=== PATIENT | female | born 1990 | race Two or more races ===

== ENCOUNTER 2021-02-20 12:22 | Emergency (ER) | payer OTHER ==
[~2021-02-20] VITALS: Ht 175.3 cm; Wt 64.8 kg
[2021-02-20] MEDS ORDERED: SYNT25TA PO (12:58)
[2021-02-20] MEDS ORDERED: KETOROLAC 30 MG/ML 1ML VIAL IV ONE (16:25)
[2021-02-20] MEDS ORDERED: NS 1,000 ML IV ONE (16:25)
[2021-02-20 17:01] LABS: BASO % 0.1 % (0.0-1.0); EOS # 0.1 10^3/uL (0.0-0.5); EOS % 0.9 % (0.0-3.0); HEMATOCRIT 38.4 % (36.0-47.0); HEMOGLOBIN 12.7 g/dl (12.0-15.5); LYMPH # 2.2 10^3/uL (1.5-5.0); MEAN CORPUSCULAR HEMOGLOBIN 29.8 pg (27.0-33.0); MEAN CORPUSCULAR HGB CONC 33.1 g/dl (32.0-36.5); MEAN CORPUSCULAR VOLUME 90.1 fl (80.0-96.0); MONO # 0.6 10^3/uL (0.0-0.8); MONO % 8.7 % (2.0-8.0); NEUTROPHILS # 3.8 10^3/uL (1.5-8.5); NEUTROPHILS % 57.2 % (36.0-66.0); PLATELET COUNT, AUTOMATED 279 10^3/uL (150-450); RED BLOOD COUNT 4.26 10^6/uL (4.00-5.40); WHITE BLOOD COUNT 6.7 10^3/uL (4.0-10.0)
[2021-02-20 17:28] LABS: ALBUMIN 3.8 GM/DL (3.2-5.2); ALT/SGPT 17 U/L (12-78); BILIRUBIN,DIRECT 0.2 MG/DL (0.0-0.2); BILIRUBIN,TOTAL 0.4 MG/DL (0.2-1.0); BLOOD UREA NITROGEN 10 MG/DL (7-18); CALCIUM LEVEL 9.1 MG/DL (8.5-10.1); CARBON DIOXIDE LEVEL 29 MEQ/L (21-32); CHLORIDE LEVEL 104 MEQ/L (98-107); CREATININE FOR GFR 0.72 MG/DL (0.55-1.30); GLOMERULAR FILTRATION RATE > 60.0 (>60); GLUCOSE, FASTING 124 MG/DL (70-100); LIPASE 118 U/L (73-393); POTASSIUM SERUM 3.8 MEQ/L (3.5-5.1); SODIUM LEVEL 139 MEQ/L (136-145); TOTAL PROTEIN 6.9 GM/DL (6.4-8.2)
[2021-02-20 17:29] LABS: HCG, SERUM QUALITATIVE NEGATIVE (NEGATIVE)
--- NOTE | 2021-02-20 19:24 | REPVR ---
PROCEDURE INFORMATION: Exam: CT Abdomen And Pelvis Without Contrast Exam date and time: 02/20/2021 5:58 PM Age: 30 years old Clinical indication: Abdominal pain; Localized; Left; Additional info: Left flank pain, eval for hydro/calc TECHNIQUE: Imaging protocol: Computed tomography of the abdomen and pelvis without contrast. Radiation optimization: All CT scans at this facility use at least one of these dose optimization techniques: automated exposure control; mA and/or kV adjustment per patient size (includes targeted exams where dose is matched to clinical indication); or iterative reconstruction. COMPARISON: No relevant prior studies available. FINDINGS: Liver: Normal. No mass. Gallbladder and bile ducts: Normal. No calcified stones. No ductal dilation. Pancreas: Normal. No ductal dilation. Spleen: Normal. No splenomegaly. Adrenal glands: Normal. No mass. Kidneys and ureters: Normal. No hydronephrosis. Stomach and bowel: There is thickening of the colonic wall in the distal left colon associated with vague mural stratification. Findings may indicate segmental colitis in the appropriate clinical setting. There is no evidence of a pericolonic or intra colonic abscess. Remainder of the colon is unremarkable. Appendix: No evidence of appendicitis. Intraperitoneal space: There is minimal fluid in the cul-de-sac most likely physiologic. Clinical correlation to exclude other causes of cul-de-sac fluid suggested. Vasculature: Unremarkable. No abdominal aortic aneurysm. Lymph nodes: Unremarkable. No enlarged lymph nodes. Urinary bladder: Unremarkable as visualized. Reproductive: Unremarkable as visualized. Bones/joints: Mild central spinal stenosis L3-L4 and [id number] central spinal stenosis L4-L5. Soft tissues: Unremarkable. IMPRESSION: 1. There is thickening of the colonic wall in the distal left colon associated with vague mural stratification. Findings may indicate segmental colitis in the appropriate clinical setting. There is no evidence of a pericolonic or intra colonic abscess. 2. There are no radiopaque urinary tract calculi demonstrated. Electronically signed by: Mustapha Mercado On 02/20/2021 19:23:40 PM
[2021-02-20 20:28] VITALS: BP 108/61
== END 2021-02-20 20:31 | disposition home or self-care (01) ==
LOC: M ED 12:22
DX: R10.12 Left upper quadrant pain (principal); Z91.013 Allergy to seafood
CPT/HCPCS: 74176; 80048; 80076; 81001; 83690; 84703; 85025; 96361; 96374; 99284; J1885

== ENCOUNTER → 2021-12-17 | Outpatient (REF) | payer OTHER ==
[~2021-12-17] MED LIST: SYNT25TA PO
[2021-12-17 15:43] LABS: GC DNA AMPLIFICATION NEGATIVE (NEGATIVE)
== END ==
LOC: M SFHCWAGY 13:14
PROVIDERS: ATTEND Obstetrics & Gynecology
DX: R10.2 Pelvic and perineal pain (principal); Z12.4 Encounter for screening for malignant neoplasm of cervix; R87.613 High grade squamous intraepithelial lesion on cytologic smear of cervix (HGSIL)
CPT/HCPCS: 87624; 87661; 87810; 87850; G0123; G0463

== ENCOUNTER → 2021-12-19 | Outpatient (CLI) | payer OTHER | LOC: M WHC 13:30 | PROVIDERS: ATTEND Obstetrics & Gynecology | DX: R10.2 Pelvic and perineal pain (principal) ==

== ENCOUNTER → 2022-01-30 | Outpatient (CLI) | payer OTHER | LOC: M RAD 16:03 | PROVIDERS: ATTEND Physician Assistant | DX: R22.1 Localized swelling, mass and lump, neck (principal) ==

== ENCOUNTER 2022-02-06 21:08 | Emergency (ER) | payer OTHER ==
[~2022-02-06] VITALS: Ht 175.3 cm; Wt 65.0 kg
[2022-02-06 21:08] VITALS: BP 124/74
[2022-02-06] MEDS ORDERED: FAMO40TA3 PO (22:23)
[2022-02-06] MEDS ORDERED: LEVO50TA5 PO (22:23)
== END 2022-02-07 00:14 | disposition left against medical advice (07) ==
LOC: M ED 21:08
DX: Z53.21 Procedure and treatment not carried out due to patient leaving prior to being seen by health care provider (principal)

== ENCOUNTER → 2022-02-11 | Outpatient (REF) | payer OTHER ==
[~2022-02-11] MED LIST changes: +FAMO40TA3 PO; +LEVO50TA5 PO
== END ==
LOC: M SFHCWAGY 16:46
PROVIDERS: ATTEND Obstetrics & Gynecology
DX: R87.613 High grade squamous intraepithelial lesion on cytologic smear of cervix (HGSIL) (principal); R87.612 Low grade squamous intraepithelial lesion on cytologic smear of cervix (LGSIL)

== ENCOUNTER → 2022-03-10 | Outpatient (REF) | payer OTHER ==
[~2022-03-10] MED LIST changes: +VITMTA PO
== END ==
LOC: M LAB REF 17:14
PROVIDERS: ATTEND Otolaryngology
DX: K11.23 Chronic sialoadenitis (principal)

== ENCOUNTER → 2022-03-16 | Outpatient (CLI) | payer OTHER | LOC: M LABSMTC 09:25 | PROVIDERS: ATTEND Anesthesiology | DX: Z01.818 Encounter for other preprocedural examination (principal) ==

== ENCOUNTER → 2022-04-29 | Day surgery (SDC) | payer OTHER ==
[~2022-04-29] VITALS: Ht 175.3 cm; Wt 64.0 kg
[~2022-04-29] MED LIST changes: +ACETAMINOPHEN 1000MG 100ML IV BAG As Ordered ONE; +CYAN500T14 PO; +IODINE STRONG SOLN 15ML BTL As Ordered ONE; +KETOROLAC 60MG 2ML VIAL As Ordered ONE; +LIDOCAINE 2% 100MG/5ML SDV (FOR ANES.) As Ordered ONE; +LIDOCAINE W/EPINEPHRINE 1% 20ML VIAL As Ordered ONE; +LR 1,000 ML IV SCH; +MAGN250T7 PO; +MIDAZOLAM INJ 2MG/2ML VIAL As Ordered ONE; +ONDANSETRON 4MG 2ML VIAL As Ordered ONE; +ONDANSETRON 4MG ORAL DISINTEGRATING TAB SL STA; +SCOPOLAMINE 1MG TRANSDERMAL PATCH TOP STA; +fentaNYL 100 MCG/2 ML INJECTION As Ordered ONE; +propofoL 200 MG/20 ML VIAL As Ordered ONE
[2022-04-29 12:52] LABS: HEMOGLOBIN 13.1 g/dl (12.0-15.5); MEAN CORPUSCULAR HGB CONC 32.8 g/dl (32.0-36.5); MEAN CORPUSCULAR VOLUME 91.7 fl (80.0-96.0); PLATELET COUNT, AUTOMATED 284 10^3/uL (150-450); RED BLOOD COUNT 4.36 10^6/uL (4.00-5.40); WHITE BLOOD COUNT 6.5 10^3/uL (4.0-10.0)
[2022-04-29 18:54] VITALS: BP 112/66
== END | disposition home or self-care (01) ==
LOC: M SDC 12:14
PROVIDERS: ATTEND Obstetrics & Gynecology
DX: D06.9 Carcinoma in situ of cervix, unspecified (principal); I10 Essential (primary) hypertension; E03.9 Hypothyroidism, unspecified; K21.9 Gastro-esophageal reflux disease without esophagitis; Z79.899 Other long term (current) drug therapy; Z91.013 Allergy to seafood; Z88.5 Allergy status to narcotic agent; F41.9 Anxiety disorder, unspecified; Z87.891 Personal history of nicotine dependence
CPT/HCPCS: 36415; 57460; 81025; 85027; 86850; 86900; 86901; 88307; J0131; J1100; J1885; J2250; J2405; J3010

== ENCOUNTER 2022-07-19 14:48 | Emergency (ER) | payer OTHER ==
[~2022-07-19] VITALS: Ht 175.3 cm; Wt 61.4 kg
[~2022-07-19 14:48] MED LIST changes: -ACETAMINOPHEN 1000MG 100ML IV BAG As Ordered ONE; -IODINE STRONG SOLN 15ML BTL As Ordered ONE; -KETOROLAC 60MG 2ML VIAL As Ordered ONE; -LIDOCAINE 2% 100MG/5ML SDV (FOR ANES.) As Ordered ONE; -LIDOCAINE W/EPINEPHRINE 1% 20ML VIAL As Ordered ONE; -LR 1,000 ML IV SCH; -MIDAZOLAM INJ 2MG/2ML VIAL As Ordered ONE; -ONDANSETRON 4MG 2ML VIAL As Ordered ONE; -ONDANSETRON 4MG ORAL DISINTEGRATING TAB SL STA; -SCOPOLAMINE 1MG TRANSDERMAL PATCH TOP STA; -fentaNYL 100 MCG/2 ML INJECTION As Ordered ONE; -propofoL 200 MG/20 ML VIAL As Ordered ONE
[2022-07-19 16:08] LABS: BASO % 0.1 % (0.0-1.0); EOS # 0.1 10^3/uL (0.0-0.5); EOS % 0.4 % (0.0-3.0); HEMATOCRIT 41.1 % (36.0-47.0); HEMOGLOBIN 13.4 g/dl (12.0-15.5); LYMPH # 1.2 10^3/uL (1.5-5.0); LYMPH % 9.1 % (24.0-44.0); MEAN CORPUSCULAR HEMOGLOBIN 29.2 pg (27.0-33.0); MEAN CORPUSCULAR HGB CONC 32.6 g/dl (32.0-36.5); MEAN CORPUSCULAR VOLUME 89.5 fl (80.0-96.0); MONO # 0.7 10^3/uL (0.0-0.8); MONO % 5.2 % (2.0-8.0); NEUTROPHILS # 11.5 10^3/uL (1.5-8.5); NEUTROPHILS % 84.8 % (36.0-66.0); PLATELET COUNT, AUTOMATED 331 10^3/uL (150-450); RED BLOOD COUNT 4.59 10^6/uL (4.00-5.40); WHITE BLOOD COUNT 13.6 10^3/uL (4.0-10.0)
[2022-07-19 16:38] LABS: LIPASE 36 U/L (12-53)
[2022-07-19 16:40] LABS: ALBUMIN 4.1 G/DL (3.2-5.2); ALKALINE PHOSPHATASE 60 U/L (46-116); ALT/SGPT 17 U/L (7.0-40); AST/SGOT 24 U/L (<34); BILIRUBIN,DIRECT 0.2 MG/DL (<0.4); BILIRUBIN,TOTAL 0.7 MG/DL (0.3-1.2); BLOOD UREA NITROGEN 13 MG/DL (9-23); CALCIUM LEVEL 9.4 MG/DL (8.5-10.1); CARBON DIOXIDE LEVEL 23 MMOL/L (20-31); CHLORIDE LEVEL 106 MMOL/L (98-107); CREATININE FOR GFR 0.65 MG/DL (0.55-1.30); GLOMERULAR FILTRATION RATE > 60.0 (>60); GLUCOSE, FASTING 94 MG/DL (60-100); POTASSIUM SERUM 3.9 MMOL/L (3.5-5.1); SODIUM LEVEL 139 MMOL/L (136-145); TOTAL PROTEIN 7.1 G/DL (5.7-8.2)
[2022-07-19] MEDS ORDERED: KETOROLAC 30 MG/ML 1ML VIAL IV ONE (17:00)
[2022-07-19] MEDS ORDERED: NS 1,000 ML IV ONE (17:00)
[2022-07-19] MEDS ORDERED: ISOVUE-370 76% 100ML VIAL As Ordered ONE (17:04)
[2022-07-19 23:32] LABS: GC DNA AMPLIFICATION NEGATIVE (NEGATIVE)
[2022-07-20 00:42] VITALS: BP 106/71
== END 2022-07-20 00:44 | disposition home or self-care (01) ==
LOC: M ED 14:48
DX: N94.0 Mittelschmerz (principal); K21.9 Gastro-esophageal reflux disease without esophagitis; Z87.42 Personal history of other diseases of the female genital tract; E03.9 Hypothyroidism, unspecified; F17.200 Nicotine dependence, unspecified, uncomplicated; Z91.013 Allergy to seafood; Z91.048 Other nonmedicinal substance allergy status; Z79.810 Long term (current) use of selective estrogen receptor modulators (SERMs); Z79.899 Other long term (current) drug therapy
CPT/HCPCS: 74177; 76830; 76856; 80048; 80076; 81000; 81015; 83690; 84702; 85025; 87086; 87210; 87661; 87810; 87850; 93976; 96361; 96374; 99284; J1885; Q9967